=== PATIENT | male | born 1985 | race Caucasian/White ===

== ENCOUNTER → 2022-04-01 | Outpatient (CLI) | payer OTHER ==
[~2022-04-01] MED LIST: ALBUTEROL0.09 MG/A4 IH; CEPHALEXIN500 M1 PO; MUCINEX DM 60 M1 TER PO; PREDNISONE20 M1 PO; VENTOLIN0.09 MG IH; ZITHROMAX Z PA250 MG PO
== END ==
LOC: RAD 16:58
DX: S67.10XA Crushing injury of unspecified finger(s), initial encounter (principal); X58.XXXA Exposure to other specified factors, initial encounter

== ENCOUNTER 2023-01-26 07:57 | Outpatient (RCR) | payer OTHER | END 2023-01-28 | disposition home or self-care (01) | LOC: PT | DX: M54.12 Radiculopathy, cervical region (principal) ==